=== PATIENT | female | born 1955 | race Caucasian/White ===

== ENCOUNTER 2017-03-24 17:52 | Emergency (ER) | payer OTHER ==
[2017-03-24 18:16] VITALS: RESP 18
--- NOTE | 2017-03-24 19:38 | EDPHY ---
H & P Time Seen by Provider: 03/24/17 19:20 HPI/ROS: CHIEF COMPLAINT: Diarrhea HISTORY OF PRESENT ILLNESS: The patient is a wheelchair-bound 61 y/o female complaining of persistent diarrhea for the last week. Multiple episodes of watery diarrhea daily for 7 days. She denies associated nausea, vomiting, fever , or abdominal pain. No known aggravating factors. No recent abx. REVIEW OF SYSTEMS: Constitutional: No fever, no chills Eyes: No visual changes ENT: No sore throat Respiratory: No cough, no shortness of breath Cardiac: No chest pain Gastrointestinal: see HPI Genitourinary: No hematuria, no dysuria Musculoskeletal: No leg pain or swelling Skin: No rash Neurological: No headache, no numbness, no weakness Psychiatric: No depression Past Medical/Surgical History: PMH includes: 1. Anxiety 2. Polio 3. Claustrophobia and "fear of hospitals" Social History: Disabled. From [place]. Former smoker. Smoking Status: Former smoker Physical Exam: General Appearance: Alert, well hydrated, well appearing Eyes: Pupils equal and round, no conjunctival pallor or injection ENT, Mouth: Mucous membranes moist Neck: Normal inspection Respiratory: Lungs are clear to auscultation Cardiovascular: Regular rate and rhythm Gastrointestinal: Abdomen is soft and non-tender Skin: Warm and dry Psychiatric: Mood and affect normal Constitutional: Initial Vital Signs Temperature (C) 37 C 03/24/17 18:05 Heart Rate 84 03/24/17 18:05 Respiratory Rate 18 03/24/17 18:05 Blood Pressure 114/85 H 03/24/17 18:05 O2 Sat (%) 94 03/24/17 18:05 O2 Delivery Mode Room Air Allergies/Adverse Reactions: celecoxib [From Celebrex] Allergy (Verified 03/24/17 18:10) codeine [Codeine] Allergy (Verified 06/08/14 04:07) hydromorphone [From Dilaudid] Allergy (Verified 03/24/17 18:10) iodine [Iodine] Allergy (Verified 06/08/14 04:07) Penicillins Allergy (Verified 06/08/14 04:07) pregabalin [From Lyrica] Allergy (Verified 03/24/17 18:10) sertraline [From Zoloft] Allergy (Verified 03/24/17 18:10) topiramate [From Topamax] Allergy (Verified 03/24/17 18:10) Home Medications: Medication Instructions Recorded LORazepam [Ativan] 0 mg PO 08/27/11 traZODone [traZODONE 50MG (*)] 0 mg PO 08/27/11 Chlorzoxazone 500 mg PO 03/24/17 Levothyroxine [Synthroid 100 mcg 100 mcg PO DAILY06 03/24/17 (*)] traMADol [Ultram 50 mg (*)] 50 mg PO 03/24/17 Medical Decision Making ED Course/Re-evaluation: This pt presents with loose stools for one week. Does not appear dehydrated and abd is benign. Unable to provide stool sample in ED. Sent home with lab slip and stool specimen container. Departure - Departure Disposition: Home, Routine, Self-Care Clinical Impression: Diarrhea Qualifiers: Diarrhea type: presumed infectious Qualified Code(s): A09 - Infectious gastroenteritis and colitis, unspecified Condition: Good Instructions: Loperamide (By mouth), Acute Diarrhea (ED) Additional Instructions: 1. Bring stool specimen back to the lab within 2-3 hours of your bowel movement. 2. Increase fluid intake. I recommend clear liquids for 24 hours. Pedialyte is a good option. Dairy products and meat tend to make diarrhea worse. 3. Use Imodium as directed on the packaging for diarrhea. 4. Follow up with your primary care provider for unimproved symptoms over the next few days. Referrals: Nikko Garcia MD [Primary Care Provider] - As per Instructions Report Scribed for: Earline Lopez Report Scribed by: Shannan Dos Santos Date of Report: 03/24/17 Time of Report: 19:36 Physician Review and Approval Statement: 03/24/17 19:36 Portions of this note were transcribed by a medical billing manager. I personally performed a history, physical exam, medical decision making, and confirmed accuracy of information the transcribed note.
[2017-03-24 19:57] VITALS: BP 127/68; PULSE 91; TEMP 98.2; O2SAT 92
== END 2017-03-24 20:01 | disposition home or self-care (01) ==
DX: A09 Infectious gastroenteritis and colitis, unspecified (principal); Z87.891 Personal history of nicotine dependence

== ENCOUNTER 2018-06-07 03:49 | Emergency (ER) | payer OTHER ==
[2018-06-07] MEDS ORDERED: NS 1,000 ML IV ONE (04:05)
--- NOTE | 2018-06-07 04:05 | EDPHY ---
H & P Stated Complaint: diarrhea x 1mo, x 10 in last 24 hr Time Seen by Provider: 06/07/18 04:05 HPI/ROS: HPI CHIEF COMPLAINT: Diarrhea x1 month. HISTORY OF PRESENT ILLNESS: 62-year-old female, wheelchair-bound, history of polio, anxiety, presents emergency room with diarrhea. Patient states she has had watery diarrhea for the past month. It has gotten worse over the past few days. No fever, denies any abdominal pain, denies vomiting. Denies bloody stool. No rectal pain. She states she is having loose watery diarrheal stools. She states she has had this before. Denies any recent antibiotics or recent travel. Past Medical History: Past medical history consistent of polio, claustrophobia anxiety, wheelchair-bound. Past Surgical History: No recent surgery. Social History: Denies drugs alcohol tobacco. Family History: Noncontributory. ROS REVIEW OF SYSTEMS: A comprehensive 10 point review of systems is otherwise negative aside from elements mentioned in the history of present illness. Exam Constitutional nontoxic appearing, wheelchair-bound, triage nursing summary reviewed, vital signs reviewed, awake/alert. Eyes normal conjunctivae and sclera, EOMI, PERRLA. HENT normal inspection, atraumatic, moist mucus membranes, no epistaxis, neck supple/ no meningismus, no raccoon eyes. Respiratory clear to auscultation bilaterally, normal breath sounds, no respiratory distress, no wheezing. Cardiovascular rate normal, regular rhythm, no murmur, no edema, distal pulses normal. Gastrointestinal nontender exam, soft, non-tender, no rebound, no guarding, normal bowel sounds, no distension, no pulsatile mass. Genitourinary no CVA tenderness. Musculoskeletal no midline vertebral tenderness, full range of motion, no calf swelling, no tenderness of extremities, no meningismus, good pulses, neurovascularly intact. Skin pink, warm, & dry, no rash, skin atraumatic. Neurologic normal neurological exam at her baseline, wheelchair-bound with lower extremity weakness. Psychiatric normal mood/affect. Heme/Lymph/Immune no lymphadenopathy. Differential Diagnosis: Includes but is not limited to in a particular order acute diarrheal illness, dehydration, electrolyte disturbance, viral syndrome, C diff, enteritis, fecal impaction Medical Decision Making: Plan for this patient IV establishment blood draw, IV fluid bolus 1 L normal saline, KUB. Re-evaluate. Re-evaluation: KUB reviewed by myself. This shows no evidence of free air, and a bowel gas pattern that is not consistent with an obstruction. Extensive spinal degenerative disease and arthritic changes and malalignment of spine. 5:22 a.m., patient re-evaluated resting comfortably no acute distress. Received IV fluids. Blood work has been reviewed. She does not have an elevated white blood cell count. Electrolytes are appropriate. I do recommend that she takes loperamide for her diarrhea. Follows up with her primary care doctor. Stool studies have been sent. Patient provided stool sample. Recommend she call in 24 hr for results of stool study. Stool studies were sent for C diff and other bacterial infection. She has not had any fever no high white count no bloody stools. Recommend loperamide close follow-up with her doctor. Return precautions discussed she understands. Source: Patient - Personal History Current Tetanus/Diphtheria Vaccine: Yes Tetanus Vaccine Date: 2010 - Medical/Surgical History Hx Asthma: No Hx Chronic Respiratory Disease: No Hx Diabetes: No Hx Cardiac Disease: No Hx Renal Disease: No Hx Cirrhosis: No Hx Alcoholism: No Hx HIV/AIDS: No Hx Splenectomy or Spleen Trauma: No Other PMH: anxiety, post polio, claustraphobic, fear of hospitals , orthopedic surgeries, 2016 colon ca, hypothyroid, ptsd, osteoporosis - Social History Smoking Status: Former smoker Constitutional: Initial Vital Signs Temperature (C) 36.8 C 06/07/18 03:57 Heart Rate 95 06/07/18 03:57 Respiratory Rate 18 06/07/18 03:57 Blood Pressure 125/77 H 06/07/18 03:57 O2 Sat (%) 96 06/07/18 03:57 O2 Delivery Mode Room Air Allergies/Adverse Reactions: celecoxib [From Celebrex] Allergy (Verified 06/07/18 03:53) codeine [Codeine] Allergy (Verified 06/07/18 03:53) hydromorphone [From Dilaudid] Allergy (Verified 06/07/18 03:53) iodine [Iodine] Allergy (Verified 06/07/18 03:53) Penicillins Allergy (Verified 06/07/18 03:53) pregabalin [From Lyrica] Allergy (Verified 06/07/18 03:53) sertraline [From Zoloft] Allergy (Verified 06/07/18 03:53) topiramate [From Topamax] Allergy (Verified 06/07/18 03:53) Home Medications: Medication Instructions Recorded LORazepam [Ativan] 0 mg PO 08/27/11 traZODone [traZODONE 50MG (*)] 0 mg PO 08/27/11 Levothyroxine [Synthroid 100 mcg 100 mcg PO DAILY06 03/24/17 (*)] Cyclobenzaprine 06/07/18 Medical Decision Making - Data Points Laboratory Results: Laboratory Results 06/07/18 04:24 06/07/18 04:24 06/07/18 06/07/18 04:24 04:24 WBC 7.41 10^3/uL 10^3/uL (3.80-9.50) RBC 4.63 10^6/uL 10^6/uL (4.18-5.33) Hgb 14.1 g/dL g/dL (12.6-16.3) Hct 42.3 % % (38.0-47.0) MCV 91.4 fL fL (81.5-99.8) MCH 30.5 pg pg (27.9-34.1) MCHC 33.3 g/dL g/dL (32.4-36.7) RDW 13.3 % % (11.5-15.2) Plt Count 275 10^3/uL 10^3/uL (150-400) MPV 10.0 fL fL (8.7-11.7) Neut % (Auto) 49.0 % % (39.3-74.2) Lymph % (Auto) 42.5 % % (15.0-45.0) [place] % (Auto) 6.6 % % (4.5-13.0) Eos % (Auto) 1.1 % % (0.6-7.6) Baso % (Auto) 0.5 % % (0.3-1.7) Nucleat RBC Rel Count 0.0 % % (0.0-0.2) Absolute Neuts (auto) 3.63 10^3/uL 10^3/uL (1.70-6.50) Absolute Lymphs (auto) 3.15 10^3/uL H 10^3/uL (1.00-3.00) Absolute Monos (auto) 0.49 10^3/uL 10^3/uL (0.30-0.80) Absolute Eos (auto) 0.08 10^3/uL 10^3/uL (0.03-0.40) Absolute Basos (auto) 0.04 10^3/uL 10^3/uL (0.02-0.10) Absolute Nucleated RBC 0.00 10^3/uL 10^3/uL (0-0.01) Immature Gran % 0.3 % % (0.0-1.1) Immature Gran # 0.02 10^3/uL 10^3/uL (0.00-0.10) Sodium 139 mEq/L mEq/L (135-145) Potassium 3.6 mEq/L mEq/L (3.3-5.0) Chloride 106 mEq/L mEq/L (97-110) Carbon Dioxide 23 mEq/l mEq/l (22-31) Anion Gap 10 mEq/L mEq/L (8-16) BUN 5 mg/dL L mg/dL (7-23) Creatinine 0.6 mg/dL mg/dL (0.6-1.0) Estimated GFR > 60 Glucose 85 mg/dL mg/dL (70-100) Calcium 9.7 mg/dL mg/dL (8.5-10.4) Total Bilirubin 0.4 mg/dL mg/dL (0.1-1.4) Conjugated Bilirubin 0.4 mg/dL mg/dL (0.0-0.5) Unconjugated Bilirubin 0.0 mg/dL mg/dL (0.0-1.1) AST 28 IU/L IU/L (14-46) ALT 34 IU/L IU/L (9-52) Alkaline Phosphatase 69 IU/L IU/L (38-126) Total Protein 7.2 g/dL g/dL (6.3-8.2) Albumin 4.1 g/dL g/dL (3.5-5.0) Medications Given: Discontinued Medications Sodium Chloride (Ns) 1,000 mls @ 0 mls/hr IV EDNOW ONE; Wide Open PRN Reason: Protocol Stop: 06/07/18 04:06 Last Admin: 06/07/18 04:21 Dose: 1,000 mls Departure - Departure Disposition: Home, Routine, Self-Care Clinical Impression: Diarrhea Qualifiers: Diarrhea type: unspecified type Qualified Code(s): R19.7 - Diarrhea, unspecified Condition: Good Instructions: Dehydration (ED), Acute Diarrhea (ED) Additional Instructions: 1. Follow up with your primary care doctor. 2. Return to the emergency room if you have worsening abdominal pain fever vomiting 3. Call in 24 hrs about your stool studies. Referrals: Nikko Garcia MD [Primary Care Provider] - As per Instructions
[2018-06-07 04:34] LABS: PLATELET COUNT 275 10^3/uL (150-400)
[2018-06-07 05:17] VITALS: BP 132/59
[2018-06-07] MEDS ORDERED: CYCLOBENZAPRINE 10 MG TAB PO ONE (05:18)
== END 2018-06-07 05:43 | disposition home or self-care (01) ==
DX: R19.7 Diarrhea, unspecified (principal); E86.9 Volume depletion, unspecified; Z85.038 Personal history of other malignant neoplasm of large intestine; Z87.891 Personal history of nicotine dependence